=== PATIENT | female | born 1965 | race Caucasian/White ===

== ENCOUNTER 2017-02-11 13:42 | Emergency (ER) | payer MEDICAID ==
--- NOTE | 2017-02-11 14:06 | Emergency Department Record ---
History of Present Illness - General Chief Complaint: Headache Migraine Stated Complaint: MIGRAINE Time Seen by Provider: 02/11/17 14:01 Source: Patient Mode of Arrival: Ambulatory Limitations: No limitations - History of Present Illness Initial Comments: 51 yo female presents with a headache. She has a history of migraines. This migraine started 2 weeks ago. The onset was very typical. It was not severe or different at the onset. She has associated light sensitivity, noise sensitivity, and nausea. All typical of her migraines. She has tried her usual migraine medications without complete control. The headache has increased gradually over that time. No trauma or fevers. She reports a 15 year history of migraines. She has followed with neurologist over the years and has had prior scans. She states she was told by her neurology she had a benign tumor that "wasn't" anything to worry about. She has not had a follow up study since then (a few years ago). She states she just recently moved to [place] and is looking for a new doctor. She has chronic spine pain followed by Dr Simpson in [place]. No vision changes. No new weakness. No speech changes. MD Complaint: "Migraine" Onset/Timin -: Week(s) Onset Description: Gradual Location: Diffuse Severity: Severe Severity scale (1-10): 9 Quality: Full Consistency: Constant Improves With: Nothing Worsens With: Light, Movement of head/neck, Noise Context: Occured at rest Associated Symptoms: Photophobia, Sensitivity to sound Treatments Prior to Arrival: None - Related Data Home Medications Medication Instructions Recorded Confirmed Last Taken Butalbital/Aspirin/Caffeine 1 each PO Q6HR PRN 02/11/17 02/11/17 02/03/17 [Fiorinal 50-325-40 mg Capsule] Hydrocodone/Acetaminophen 7.5 mg PO Q6HR 02/11/17 02/11/17 02/10/17 [Hydrocodone/Acetaminophen 7.5mg/325mg] Previous Rx's Medication Instructions Recorded Amoxicillin/Potassium Clav 1 tab PO BID #20 tab 02/11/17 [Augmentin 875-125 Tablet] Allergies Allergy/AdvReac Type Severity Reaction Status Date / Time ciprofloxacin [From Cipro] AdvReac DIARRHEA Verified 02/11/17 14:09 Travel Screening - Travel/Exposure Within Last 30 Days Have you traveled within the last 30 days?: No - Travel/Exposure Within Last Year Have you traveled outside the [place] in the last year?: No - Additonal Travel Details Have you been exposed to anyone with a communicable illness?: No - Travel Symptoms Symptom Screening: None Review of Systems Constitutional: Denies: Chills, Fever, Malaise, Weakness Eyes: Reports: Photophobia. Denies: Eye discharge, Eye pain, Vision change ENT: Denies: Congestion, Ear pain, Epistaxis, Throat pain Respiratory: Denies: Cough, Dyspnea, Hemoptysis, Stridor, Wheezes Cardiovascular: Denies: Chest pain, Palpitations, Syncope Endocrine: Denies: Fatigue, Polydipsia, Polyuria Gastrointestinal: Reports: Diarrhea, Nausea. Denies: Abdominal pain, Vomiting Genitourinary: Denies: Dysuria, Urgency Musculoskeletal: Reports: As per HPI, Back pain, Myalgia, Neck pain. Denies: Arthralgia Skin: Denies: Bruising, Change in color, Rash Neurological: Reports: Headache, Seizure (hx of sz). Denies: Abnormal gait, Confusion, Numbness, Paresthesias, Tingling, Tremors, Vertigo, Weakness Psychiatric: Reports: Anxiety Hematological/Lymphatic: Denies: Blood Clots, Easy bleeding, Easy bruising, Swollen glands Physical Exam - General General Appearance: Alert, Oriented x3, Cooperative, No acute distress Limitations: No limitations - Head Head exam: Atraumatic, Normocephalic, Normal inspection Head exam detail: negative: Abrasion, Contusion, General tenderness - Eye Eye exam: Normal appearance, PERRL, EOMI. negative: Conjunctival injection, Nystagmus, Periorbital swelling, Scleral icterus - ENT ENT exam: Normal exam, Mucous membranes moist Ear exam: Normal external inspection Nasal Exam: Normal inspection Mouth exam: Normal external inspection Throat exam: Normal inspection - Neck Neck exam: Normal inspection, Full ROM. negative: Lymphadenopathy, Meningismus , Tenderness, Thyromegaly - Respiratory Respiratory exam: Normal lung sounds bilaterally. negative: Respiratory distress - Cardiovascular Cardiovascular Exam: Regular rate, Normal rhythm, Normal heart sounds Peripheral Pulses: 2+: Radial (R), Radial (L) - GI/Abdominal GI/Abdominal exam: Soft. negative: Tenderness - Rectal Rectal exam: Deferred - exam: Deferred - Extremities Extremities exam: Normal inspection. negative: Full ROM, Pedal edema, Tenderness - Back Back exam: Reports: Paraspinal tenderness, Tenderness. Denies: CVA tenderness ( R), CVA tenderness (L) - Neurological Neurological exam: Alert, CN II-XII intact, Normal gait, Oriented X3, Reflexes normal. negative: Altered, Motor sensory deficit - Psychiatric Psychiatric exam: Normal affect, Normal mood, Other (calm relaxed and conversational). negative: Agitated, Anxious - Skin Skin exam: Dry, Intact, Normal color, Warm Course Vital Signs 02/11/17 13:50 Temperature 99.8 F H Pulse Rate 68 Respiratory 20 Rate Blood Pressure 104/70 Pulse Ox 97 - Reevaluation(s) Reevaluation #1: EMR reviewed. No other prior records as she is new here Given her history of a benign mass a CT scan was ordered She is alert, does not appeared in distress, she is conversational and pleasant No acute findings on her neurologic examination. 02/11/17 14:47 Reevaluation #2: The HCT was reviewed. No mass. She has left sided maxillary and sphenoid sinusitis. Toradol and decadron added. 02/11/17 15:40 Disposition Disposition: Discharge Clinical Impression: Chronic cervical pain Migraine Qualifiers: Migraine type: unspecified Status migrainosus presence: without status migrainosus Intractability: not intractable Qualified Code(s): G43.909 - Migraine, unspecified, not intractable, without status migrainosus Sinusitis Qualifiers: Sinusitis location: maxillary Recurrence: not specified as recurrent Disposition: Home, Self-Care Condition: (1) Good Instructions: Sinusitis (ED), Migraine Headache (ED) Additional Instructions: Call your doctor first of the week for close follow up Return if worse, any new concerns or symptoms Prescriptions: Amoxicillin/Potassium Clav [Augmentin 875-125 Tablet] 1 tab PO BID #20 tab Referrals: MYRA SCRUGGS M.D. [MEDICAL DOCTOR] - Forms: Patient Portal Access Time of Disposition: 16:03
[2017-02-11] MEDS ORDERED: DIPHENHYDRAMINE HCL IV 50 MG/ML VIAL IVP ONE (14:33)
[2017-02-11] MEDS ORDERED: METOCLOPRAMIDE HCL 10 MG/2 ML VIAL IVP ONE (14:33)
[2017-02-11] MEDS ORDERED: 0.9 % SODIUM CHLORIDE 1,000 ML BAG IV ONE (14:33)
[2017-02-11] MEDS ORDERED: MORPHINE SULFATE 5 MG/ML PFS IVP ONE (14:34)
[2017-02-11] MEDS ORDERED: DEXAMETHASONE 4 MG/ML 1ML VIAL IVP ONE (15:39)
[2017-02-11] MEDS ORDERED: KETOROLAC 30 MG/ML VIAL IVP ONE (15:39)
[2017-02-11] MEDS ORDERED: AMOXICILLIN/POTASSIUM CLAV 875MG/125MG TABLET PO ONE (15:41)
--- NOTE | 2017-02-16 10:20 | CT SCAN REPORT ---
EXAM: CT OF THE BRAIN HISTORY: HEADACHE. TECHNIQUE: CT of the brain without contrast was obtained. Comparison: None. FINDINGS: The globes are intact. Bubbly air fluid level of the left maxillary sinus and left sphenoid sinus. No displaced or depressed skull fracture. No intra or extraaxial hemorrhage. CT is limited for evaluation of acute infarct. No CT evidence for large or territorial acute infarct. No mass or midline shift. IMPRESSION: LEFT MAXILLARY AND SPHENOID SINUSITIS. THE REMAINDER OF THE EXAMINATION IS UNREMARKABLE. JOB NUMBER: [id number] [facility]
== END 2017-02-11 16:27 | disposition home or self-care (01) ==
LOC: ER 13:42
DX: G43.909 Migraine, unspecified, not intractable, without status migrainosus (principal); R11.0 Nausea; J32.0 Chronic maxillary sinusitis; J32.3 Chronic sphenoidal sinusitis; H53.149 Visual discomfort, unspecified; G89.29 Other chronic pain; M54.2 Cervicalgia
CPT/HCPCS: 99284 ×2; 96374; 96375; 70450; J1885; J2270; J1200; J2765; J7030

== ENCOUNTER 2018-02-15 09:52 | Emergency (ER) | payer MEDICAID ==
[2018-02-15] MEDS ORDERED: DIPHENHYDRAMINE HCL 50 MG/ML VIAL IVP ONE (10:14)
[2018-02-15] MEDS ORDERED: METOCLOPRAMIDE HCL 10 MG/2 ML VIAL IVP ONE (10:14)
[2018-02-15] MEDS ORDERED: KETOROLAC 30 MG/ML VIAL IVP ONE ×2 (10:14→11:32)
[2018-02-15] MEDS ORDERED: SODIUM CHLORIDE 0.9% 500 ML IV ONE (10:15)
--- NOTE | 2018-02-15 10:19 | Emergency Department Record ---
History of Present Illness - General Chief Complaint: Headache Migraine Stated Complaint: HEADACHE/VOMITING Time Seen by Provider: 02/15/18 10:10 Source: Patient Mode of Arrival: Ambulatory Limitations: No limitations - History of Present Illness Initial Comments: The patient is here due to a migraine JOEL over the last 12 hours. The onset was gradual and now worsening and now the pain is all over. She has had nausea, vomiting, and photophobia with it. The patient states she has a LONG hx of migraine JOEL's similar to this and does have a Neurologist in [place]. She also has had a full evaluation for migraines including an MRI that was neg. The patient states she gets daily JOEL's but sometimes they get worse like today. MD Complaint: "Migraine" Onset/Timin -: Hour(s) Onset Description: Gradual Location: Frontal, Occipital Severity scale (1-10): >10 Quality: Similar to previous headaches, Other Consistency: Constant Improves With: Nothing Worsens With: Light, Noise Associated Symptoms: Nausea, Photophobia, Sensitivity to sound, Vomiting, Other Treatments Prior to Arrival: None - Related Data Home Medications Medication Instructions Recorded Confirmed Last Taken Fluoxetine HCl [Prozac] 20 mg PO BID 02/15/18 02/15/18 02/14/18 Meloxicam [Mobic] 15 mg PO DAILY 02/15/18 02/15/18 02/14/18 Pregabalin [Lyrica] 75 mg PO BID 02/15/18 02/15/18 02/14/18 Allergies Allergy/AdvReac Type Severity Reaction Status Date / Time ciprofloxacin [From Cipro] AdvReac DIARRHEA Verified 02/11/17 14:09 Travel Screening - Travel/Exposure Within Last 30 Days Have you traveled within the last 30 days?: No - Travel/Exposure Within Last Year Have you traveled outside the [place] in the last year?: No - Additonal Travel Details Have you been exposed to anyone with a communicable illness?: No - Travel Symptoms Symptom Screening: None Review of Systems Constitutional: Denies: Chills, Fever Eyes: Denies: Eye discharge ENT: Denies: Congestion, Throat pain Respiratory: Denies: Cough, Dyspnea Past Medical History - SOCIAL HISTORY Smoking Status: Former smoker Alcohol Use: None Drug Use: None - RESPIRATORY Hx Respiratory Disorders: No - CARDIOVASCULAR Hx Cardio Disorders: No - NEURO Hx Neuro Disorders: Yes Hx Headaches: Yes Hx Seizures: Yes Comment:: degenerative spinal disease - GI Hx GI Disorders: No - Hx Genitourinary Disorders: No - ENDOCRINE Hx Endocrine Disorders: No Hx Diabetes: No Hx Thyroid Disease: No - MUSCULOSKELETAL Hx Musculoskeletal Disorders: Yes Hx Fibromyalgia: Yes - PSYCH Hx Psych Problems: Yes Hx Anxiety: Yes Hx Depression: Yes Comment:: Bipolar Type 2 disorder - HEMATOLOGY/ONCOLOGY Hx Hematology/Oncology Disorders: No Family Medical History Any Significant Family History?: No Hx Cancer: Father, Mother, Grandparents Hx Heart Disease: Grandparents Physical Exam - General General Appearance: Alert, Oriented x3, Cooperative, Mild distress (due to the migraine pain.) - Head Head exam: Atraumatic, Normocephalic, Normal inspection - Eye Eye exam: Normal appearance, PERRL, EOMI - ENT Throat exam: Normal inspection. negative: Tonsillar erythema, Tonsillar exudate - Neck Neck exam: Normal inspection, Full ROM. negative: Lymphadenopathy, Meningismus , Tenderness - Respiratory Respiratory exam: Normal lung sounds bilaterally. negative: Respiratory distress - Cardiovascular Cardiovascular Exam: Regular rate, Normal rhythm, Normal heart sounds - GI/Abdominal GI/Abdominal exam: Soft, Normal bowel sounds. negative: Tenderness - Neurological Neurological exam: Alert, Normal gait, Oriented X3, Other (Neg Drift and [place]omberg.). negative: Abnormal gait, Altered, Motor sensory deficit Course Vital Signs 02/15/18 09:57 Temperature 98.6 F Pulse Rate 53 L Respiratory 16 Rate Blood Pressure 99/57 Pulse Ox 98 - Reevaluation(s) Reevaluation #1: The patient is doing better at this time. Her JOEL is resolving. 02/15/18 11:18 Reevaluation #2: The patient is doing a lot better. Her JOEL is 95% resolved and she is up walking with no difficulty. She feels ready for home. 02/15/18 12:59 Disposition Disposition: Discharge Clinical Impression: Migraine Qualifiers: Migraine type: unspecified Status migrainosus presence: without status migrainosus Intractability: not intractable Qualified Code(s): G43.909 - Migraine, unspecified, not intractable, without status migrainosus Disposition: Home, Self-Care Condition: (2) Stable Instructions: Migraine Headache (ED) Additional Instructions: Please continue your regular medicines and see your Headache Specialist if not better next week. Return to the ER for any worsening symptoms. Forms: Patient Portal Access Time of Disposition: 12:59 Quality - Quality Measures Quality Measures: Headache (All Ages) - Headache: Neuroimaging Quality Measure: Measure #419: Overuse of Neuroimaging ICD10 Codes Entered: Yes View Detail: Yes Neurological Exam: Patient had a normal neurological exam. [G9535] Headache: Use of Neuroimaging: < CTA, CT, MRA or MRI was NOT ordered > [G9534] - Blood Pressure Screening Does Patient Have Any of the Following: No Blood Pressure Classification: Normal BP Reading Systolic Measurement: 99 Diastolic Measurement: 57 Screening for High Blood Pressure: < Normal BP, F/U Not Required > [G8783]
[2018-02-15] MEDS ORDERED: METHYLPREDNISOLONE PF 125MG/VIAL IVP ONE (11:33)
[2018-02-15] MEDS ORDERED: MORPHINE SULFATE 4MG/ML PREFILLED SYRINGE IVP ONE (12:16)
== END 2018-02-15 13:15 | disposition home or self-care (01) ==
LOC: ER 09:52
DX: G43.909 Migraine, unspecified, not intractable, without status migrainosus (principal); R11.2 Nausea with vomiting, unspecified; H53.149 Visual discomfort, unspecified; Z87.891 Personal history of nicotine dependence
CPT/HCPCS: 99284; 96374; 96375; 99285; J1885; J2274; J1200; J2765; J2930

== ENCOUNTER 2018-07-17 19:37 | Emergency (ER) | payer MEDICAID ==
[2018-07-17] MEDS ORDERED: DIPHENHYDRAMINE HCL 50 MG/ML VIAL IVP ONE (19:49)
[2018-07-17] MEDS ORDERED: METOCLOPRAMIDE HCL 10 MG/2 ML VIAL IVP ONE (19:49)
[2018-07-17] MEDS ORDERED: KETOROLAC 30 MG/ML VIAL IVP ONE (19:49)
--- NOTE | 2018-07-17 19:55 | Emergency Department Record ---
History of Present Illness - General Chief Complaint: Headache Migraine Stated Complaint: MIGRAINE Time Seen by Provider: 07/17/18 19:39 Source: Patient Mode of Arrival: Ambulatory Limitations: No limitations - History of Present Illness Initial Comments: 52 yo female presents to ED for evaluation of a "migraine headache" for the past 3 days. Patient reports similar symptoms related to migraine headaches, reports taking Fiorcet and Ibuprofen for her pain symptoms. Patient denies the use of anticoagulation medications, denies fever or neck stiffness symptoms. Patient does report visual disturbance to the right eye as well similar to previous migraine episodes. CT imaging january of 2017 was negative for an acute process. MD Complaint: Headache Onset/Timin -: Days(s) Onset Description: Gradual Location: Diffuse Severity: Severe Quality: Throbbing Consistency: Constant Improves With: Nothing Worsens With: None Treatments Prior to Arrival: Ibuprofen, Migraine medication - Related Data Home Medications Medication Instructions Recorded Confirmed Last Taken Cyclobenzaprine HCl [Flexeril] 10 mg PO TID 07/17/18 07/17/18 Unknown Fluticasone Furoate [Flonase 15.8 ml NS ASDIR 07/17/18 07/17/18 Unknown Sensimist] Allergies Allergy/AdvReac Type Severity Reaction Status Date / Time ciprofloxacin [From Cipro] AdvReac DIARRHEA Verified 07/17/18 19:55 Review of Systems Constitutional: Denies: Chills, Fever, Malaise, Night sweats Eyes: Denies: Eye discharge, Eye pain ENT: Denies: Congestion, Ear pain, Epistaxis Respiratory: Denies: Cough, Dyspnea Cardiovascular: Denies: Chest pain, Dyspnea on exertion Endocrine: Denies: Fatigue, Heat or cold intolerance Gastrointestinal: Reports: Nausea. Denies: Abdominal pain Genitourinary: Denies: Hematuria, Incontinence, Retention Musculoskeletal: Denies: Back pain, Gout, Joint swelling Skin: Denies: Bruising, Change in color Neurological: Reports: Headache. Denies: Abnormal gait, Confusion, Seizure Psychiatric: Denies: Anxiety Hematological/Lymphatic: Denies: Anemia, Blood Clots Past Medical History - SOCIAL HISTORY Smoking Status: Former smoker Drug Use: None - RESPIRATORY Hx Respiratory Disorders: No - CARDIOVASCULAR Hx Cardio Disorders: No - NEURO Hx Neuro Disorders: Yes Hx Headaches: Yes Hx Seizures: Yes Comment:: degenerative spinal disease - GI Hx GI Disorders: No - Hx Genitourinary Disorders: No - ENDOCRINE Hx Endocrine Disorders: No Hx Diabetes: No Hx Thyroid Disease: No - MUSCULOSKELETAL Hx Musculoskeletal Disorders: Yes Hx Fibromyalgia: Yes - PSYCH Hx Psych Problems: Yes Hx Anxiety: Yes Hx Depression: Yes Comment:: Bipolar Type 2 disorder - HEMATOLOGY/ONCOLOGY Hx Hematology/Oncology Disorders: No Family Medical History Hx Cancer: Father, Mother, Grandparents Hx Heart Disease: Grandparents Physical Exam - General General Appearance: Alert, Oriented x3, Cooperative, Mild distress Limitations: No limitations - Head Head exam: Atraumatic, Normocephalic, Normal inspection Head exam detail: negative: Abrasion, Contusion, Russ's sign, General tenderness, Hematoma, Laceration - Eye Eye exam: Normal appearance. negative: Conjunctival injection, Periorbital swelling, Periorbital tenderness, Scleral icterus - ENT Ear exam: negative: Auricular hematoma, Auricular trauma Nasal Exam: negative: Active bleeding, Discharge, Dried blood, Foreign body Mouth exam: negative: Drooling, Laceration, Muffled voice, Tongue elevation - Neck Neck exam: Normal inspection. negative: Meningismus, Tenderness - Respiratory Respiratory exam: Normal lung sounds bilaterally. negative: Rales, Respiratory distress, Rhonchi, Stridor - Cardiovascular Cardiovascular Exam: Regular rate, Normal rhythm, Normal heart sounds - GI/Abdominal GI/Abdominal exam: Soft. negative: Rebound, Rigid, Tenderness - Rectal Rectal exam: Deferred - exam: Deferred - Extremities Extremities exam: Normal inspection. negative: Calf tenderness, Pedal edema, Tenderness - Back Back exam: Denies: CVA tenderness (R), CVA tenderness (L) - Neurological Neurological exam: Alert, Normal gait, Oriented X3 - Psychiatric Psychiatric exam: Normal affect, Normal mood - Skin Skin exam: Normal color. negative: Abrasion Type of lesion: negative: abrasion Course - Reevaluation(s) Reevaluation #1: 07/17/18 21:08 Patient reports that her headache symptoms are significantly improved, appears stable for discharge at this time. Disposition Disposition: Discharge Clinical Impression: Headache Qualifiers: Headache type: unspecified Headache chronicity pattern: acute headache Intractability: not intractable Qualified Code(s): R51 - Headache Disposition: Home, Self-Care Condition: (2) Stable Instructions: Acute Headache (ED) Additional Instructions: Return to ED if your symptoms worsen or if you have any concerns. Follow-up with your family doctor in 3-5 days as directed. Forms: Patient Portal Access Time of Disposition: 21:09 Quality - Quality Measures Quality Measures: N/A - Blood Pressure Screening Does Patient Have Any of the Following: No Blood Pressure Classification: Pre-Hypertensive BP Reading Systolic Measurement: 130 Diastolic Measurement: 87 Screening for High Blood Pressure: < Pre-Hypertensive BP, F/U Documented > [ G8950] Pre-Hypertensive Follow-up Interventions: Referral to alternative/primary care provider.
[2018-07-17] MEDS ORDERED: 0.9 % SODIUM CHLORIDE 1000ML 1,000 ML IV SCH (20:00)
== END 2018-07-17 21:14 | disposition home or self-care (01) ==
LOC: ER 19:37
DX: R51 Headache (principal); H53.9 Unspecified visual disturbance; F17.210 Nicotine dependence, cigarettes, uncomplicated
CPT/HCPCS: 96374; 96375; 99284; J1200; J1885; J2765; J7030

== ENCOUNTER 2019-07-14 12:01 | Emergency (ER) | payer MEDICAID ==
--- NOTE | 2019-07-14 12:36 | Emergency Department Record ---
History of Present Illness - General Chief Complaint: Headache Migraine Stated Complaint: HEADACHE Time Seen by Provider: 07/14/19 12:35 Source: Patient Mode of Arrival: Ambulatory - History of Present Illness Initial Comments: migraine for 3 days and she gets multiple migraines a week and normally she take fiorecet for her headaches and her primary is in Midnight Dr Kuhn.This is her typical headache MD Complaint: "Migraine" Onset/Timin -: Days(s) Onset Description: Sudden Location: Frontal Severity scale (1-10): 10 Quality: Sharp, Throbbing, Similar to previous headaches Consistency: Constant, Getting worse Improves With: Nothing Worsens With: Other Associated Symptoms: Photophobia Treatments Prior to Arrival: Prescription analgesic, Other Treatment Prior to Arrival Comment:: home meds - Related Data Previous Rx's Medication Instructions Recorded Naproxen [Naprosyn] 500 mg PO Q12H #20 tab 07/14/19 Allergies Allergy/AdvReac Type Severity Reaction Status Date / Time ciprofloxacin [From Cipro] AdvReac DIARRHEA Verified 07/14/19 12:16 Travel Screening - Travel/Exposure Within Last 30 Days Have you traveled within the last 30 days?: No - Travel/Exposure Within Last Year Have you traveled outside the [place] in the last year?: No - Additonal Travel Details Have you been exposed to anyone with a communicable illness?: No - Travel Symptoms Symptom Screening: None Review of Systems Reviewed: No additional complaints except as noted below Constitutional: Reports: As per HPI. Denies: Chills, Fever, Malaise, Night sweats, Weakness, Weight change Eyes: Reports: As per HPI. Denies: Eye discharge, Eye pain, Photophobia, Vision change ENT: Reports: As per HPI. Denies: Congestion, Dental pain, Ear pain, Epistaxis, Hearing loss, Throat pain Respiratory: Reports: As per HPI. Denies: Cough, Dyspnea, Hemoptysis, Stridor, Wheezes Cardiovascular: Reports: As per HPI. Denies: Arrhythmia, Chest pain, Dyspnea on exertion, Edema, Murmurs, Orthopnea, Palpitations, Paroxysmal nocturnal dyspnea, Rheumatic Fever, Syncope Endocrine: Reports: As per HPI. Denies: Fatigue, Heat or cold intolerance, Polydipsia, Polyuria Gastrointestinal: Reports: As per HPI. Denies: Abdominal pain, Constipation, Diarrhea, Hematemesis, Hematochezia, Melena, Nausea, Vomiting Genitourinary: Reports: As per HPI. Denies: Abnormal menses, Discharge, Dyspareunia, Dysuria, Frequency, Hematuria, Incontinence, Retention, Urgency Musculoskeletal: Reports: As per HPI. Denies: Arthralgia, Back pain, Gout, Joint swelling, Myalgia, Neck pain Skin: Reports: As per HPI. Denies: Bruising, Change in color, Change in hair/nails, Lesions, Pruritus, Rash Neurological: Reports: As per HPI. Denies: Abnormal gait, Confusion, Headache, Numbness, Paresthesias, Seizure, Tingling, Tremors, Vertigo, Weakness Psychiatric: Reports: As per HPI. Denies: Anxiety, Auditory hallucinations, Depression, Homicidal thoughts, Suicidal thoughts, Visual hallucinations Hematological/Lymphatic: Reports: As per HPI. Denies: Anemia, Blood Clots, Easy bleeding, Easy bruising, Swollen glands Past Medical History - SOCIAL HISTORY Smoking Status: Current every day smoker Alcohol Use: None Drug Use: Occasional Drug Use Detail:: Marijuana - RESPIRATORY Hx Respiratory Disorders: No - CARDIOVASCULAR Hx Cardio Disorders: No - NEURO Hx Neuro Disorders: Yes Hx Headaches: Yes Hx Seizures: Yes Comment:: degenerative spinal disease - GI Hx GI Disorders: No - Hx Genitourinary Disorders: No - ENDOCRINE Hx Endocrine Disorders: No Hx Diabetes: No Hx Thyroid Disease: No - MUSCULOSKELETAL Hx Musculoskeletal Disorders: Yes Hx Fibromyalgia: Yes - PSYCH Hx Psych Problems: Yes Hx Anxiety: Yes Hx Depression: Yes Comment:: Bipolar Type 2 disorder - HEMATOLOGY/ONCOLOGY Hx Hematology/Oncology Disorders: No Family Medical History Any Significant Family History?: Yes Hx Cancer: Father, Mother, Grandparents Hx Heart Disease: Grandparents Physical Exam - General General Appearance: Alert, Oriented x3, Cooperative, No acute distress - Head Head exam: Normal inspection - Eye Eye exam: Normal appearance, PERRL Pupils: Normal accommodation - ENT ENT exam: Normal exam, Mucous membranes moist, Normal external ear exam, Normal orophraynx, TM's normal bilaterally Ear exam: Normal external inspection. negative: External canal tenderness Nasal Exam: Normal inspection. negative: Discharge, Sinus tenderness Mouth exam: Normal external inspection, Tongue normal Teeth exam: Normal inspection. negative: Dental caries Throat exam: Normal inspection. negative: Tonsillar erythema, Tonsillar exudate - Neck Neck exam: Normal inspection, Full ROM. negative: Tenderness - Respiratory Respiratory exam: Normal lung sounds bilaterally. negative: Respiratory distress - Cardiovascular Cardiovascular Exam: Regular rate, Normal rhythm, Normal heart sounds - GI/Abdominal GI/Abdominal exam: Soft, Normal bowel sounds. negative: Tenderness - Rectal Rectal exam: Deferred - exam: Deferred - Extremities Extremities exam: Normal inspection, Full ROM, Normal capillary refill. negative: Tenderness - Back Back exam: Reports: Normal inspection, Full ROM. Denies: Muscle spasm, Rash noted, Tenderness - Neurological Neurological exam: Alert, Normal gait, Oriented X3, Reflexes normal - Psychiatric Psychiatric exam: Normal affect, Normal mood - Skin Skin exam: Dry, Intact, Normal color, Warm Course Vital Signs 07/14/19 12:18 Temperature 98.6 F Pulse Rate 70 Respiratory 20 Rate Blood Pressure 119/73 Pulse Ox 98 - Reevaluation(s) Reevaluation #1: feeling better and repeat neuro exam normal 07/14/19 14:24 Disposition Clinical Impression: Migraine Qualifiers: Migraine type: unspecified Status migrainosus presence: without status migrainosus Intractability: not intractable Qualified Code(s): G43.909 - Migraine, unspecified, not intractable, without status migrainosus Disposition: Home, Self-Care Condition: (1) Good Instructions: Migraine Headache (ED) Additional Instructions: follow up with family Dr in 2 days continue home medications also use naprosyn 500 mg twice a day Prescriptions: Naproxen [Naprosyn] 500 mg PO Q12H #20 tab.dr Forms: Patient Portal Access Quality - Quality Measures Quality Measures: N/A, Headache (All Ages) - Headache: Neuroimaging Quality Measure: Measure #419: Overuse of Neuroimaging ICD10 Codes Entered: Yes Neurological Exam: Patient had a normal neurological exam. [G9535] Headache: Use of Neuroimaging: < CTA, CT, MRA or MRI was NOT ordered > [G9534] - Blood Pressure Screening Does Patient Have Any of the Following: No Blood Pressure Classification: Normal BP Reading Systolic Measurement: 119 Diastolic Measurement: 73 Screening for High Blood Pressure: < Normal BP, F/U Not Required > [G8783]
[2019-07-14] MEDS ORDERED: KETOROLAC 60 MG/2 ML VIAL IM STA (13:08)
[2019-07-14] MEDS ORDERED: LORAZEPAM 2 MG/ML VIAL IM ONE (13:08)
== END 2019-07-14 15:01 | disposition home or self-care (01) ==
LOC: ER 12:01
DX: G43.909 Migraine, unspecified, not intractable, without status migrainosus (principal); H53.149 Visual discomfort, unspecified; F17.210 Nicotine dependence, cigarettes, uncomplicated
CPT/HCPCS: 96372; 99284; J1885